=== PATIENT | female | born 1995 | race Caucasian/White ===

== ENCOUNTER 2024-12-25 06:33 | Emergency (ER) | payer MEDICARE, MEDICAID, SELFPAY ==
--- NOTE | ~2024-12-25 | XR_ITS ---
CLINICAL HISTORY: sob 1 view chest x-ray Comparison: None Findings: The lungs are clear. Heart size is normal. No acute fracture. IMPRESSION: 1. No acute findings. This document has been electronically signed by: Lisa De Leon MD on 12/25/2024 07:33:02
--- NOTE | ~2024-12-25 | CT_ITS ---
EXAMINATION: CTA NECK WITH CONTRAST (STROKE) CTA BRAIN WITH CONTRAST (STROKE) CLINICAL INFORMATION: Blurred vision. COMPARISON: None available. TECHNIQUE: CTA of the head and neck was performed in the axial plane from the mediastinum to the skull vertex using 70 mL Omnipaque 350 intravenous contrast. Additional reformatted multiplanar images including maximum intensity projection MIP images are generated on the CT workstation. This CT examination was performed using dose optimization techniques as appropriate, variously including the following: *Automated exposure control *Adjustment of mA and/or kV according to patient size (this includes techniques or standardized protocols for targeted exams where dose is matched to indication/reason for exam; i.e. extremities or head) *Use of iterative reconstruction technique. DLP: 1650 mGy centimeter. FINDINGS: The degree of stenosis determined by criteria similar to NASCET. Brain: No acute intracranial hemorrhage, mass effect, midline shift, hydrocephalus or herniation. There is a semilunar hypodensity involving the peripheral aspect of the right hemicranium likely artifactual. Garner-white matter differentiation is normal. Posterior cranial fossa contents demonstrated a peripheral calcified 1.2 cm cystic structure in the pineal gland. Sellar/suprasellar region demonstrated no gross masses. Tympanic cavities and mastoid cells are aerated. Mucosal thickening, right maxillary sinus. Metallic piercing in the nasal septum, tongue and left ear. Chest CTA: Normal patency diameter of the aortic arch without focal stenosis or intimal flap. Neck CTA: Right CCA: Normal patency. No focal stenosis. No intimal flap. Right ICA: Normal patency. No focal stenosis. No intimal flap. Left CCA: Normal patency. No focal stenosis. No intimal flap. Left ICA: Normal patency. No focal stenosis. No intimal flap. V1/V2 segments: Normal patency. No focal stenosis. No intimal flap. Both demonstrated origin directly from the subclavian artery. Brain CTA: Anterior cerebral circulation: ICAs: Normal patency. No focal stenosis. No abrupt cut off. MCA's: Normal patency. No focal stenosis. No abrupt cut off. ACAs: Left A1 segment: Hypoplastic versus atretic. No focal stenosis or abrupt cut off. Ophthalmic arteries are patent. Anterior communicating artery is patent. Left posterior communicating artery is patent. Posterior cerebral circulation: V3/V4 segments: Normal patency. Codominant. No focal stenosis. No intimal flap. Posterior inferior cerebellar arteries are patent. Basilar artery: Normal patency. No focal stenosis. No intimal flap. Superior cerebellar arteries are patent. chinese teacher: Left P1 segment, hypoplastic versus atretic. No focal stenosis. No abrupt cut off. Ancillary findings: Main cerebral venous sinuses are patent. CT/CT angio head neck IMPRESSION: No main cerebral artery occlusion or embolus. No dissection. No gross aneurysm. 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 Left A1 segment: Hypoplastic versus atretic. 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 This critical test result is communicated to: Yazmin Chambers at 10:24 AM on December 25, 2024. Electronically signed by: Kenneth Mendoza MD 12/25/2024 10:47 AM EDT
[2024-12-25 06:38] VITALS: BP 134/89; PULSE 89; RESP 16; TEMP 36.7; O2SAT 98; BMI 48.5
[2024-12-25 07:18] LABS: MANUAL DIFF FLAG NO
[2024-12-25 07:19] LABS: Basophils Percent Auto 0.7 % (0-2); Eosinophils Absolute Auto 0.2 X10*3/uL (0.0-0.4); Eosinophils Percent Auto 4.4 % (0-4); Hematocrit 34.8 % (37.0-47.0); Hemoglobin 12.2 g/dl (12.0-16.0); Imm Gran Abs Auto 0.01 X10*3/uL (0.00-0.03); Imm Gran Pct Auto 0.2 % (0.0-0.4); Lymphocytes Absolute Auto 1.6 X10*3/uL (1.2-4.9); Mean Corpuscular HGB Conc 35.1 g/dl (31.0-35.0); Mean Corpuscular Hemoglobin 28.8 pg (27.0-33.0); Mean Corpuscular Volume 82.3 fL (80.0-98.0); Mean Platelet Volume 9.9 fL (9.4-12.3); Monocytes Absolute Auto 0.4 X10*3/uL (0.1-1.2); Neutrophils Absolute Auto 2.2 x10*3/uL (2.0-8.3); Neutrophils Percent Auto 49.7 % (45-73); Platelet Count 239 X10*3/uL (160-400); Red Blood Count 4.23 X10*6/uL (4.20-5.50); Red Cell Distribution Width 13.4 % (11.0-16.0); White Blood Count 4.4 X10*3/uL (4.8-10.8)
--- OUTSIDE RECORDS SUMMARY | 2024-12-25 07:25 | XMS_ITS | Clinical Summary ---
Author Organization [facility] [place] [address] Care Team Providers Care [employer] Name Role Phone Unavailable Primary Care Provider Unavailabl e Medications valACYclovir (VALTREX) 500 mg tablet TAKE 1 TABLET BY MOUTH 2 TIMES DAILY FOR 120 DAYS. 60 tablet 3 11/26/2024 Active Surgical History Surgery Date Site/Laterality Comments OTHER SURGICAL HISTORY PROCEDURE: DENIES PREVIOUS SURGERY WISDOM TOOTH EXTRACTION PROCEDURE: HISTORICAL WISDOM TEETH EXTRACTION; COMMENT: all 4 removed under local anaesthesia SECTION PROCEDURE: AR DELIVERY ONLY Medical History Medical History Date Comments Hypercholesteremia DX:Hyperchole steremia; COMMENT: resolved Migraine DX:Migraine; COM MENT: resolved Anxiety and depression DX:Anxiet y and depression Genital herpes DX:Genital herpe s Vaginal discharge 02/01/2019 DX:Vaginal dis charge Pelvic cramping 02/01/2019 DX:Pelvic crampi ng History of pre-eclampsia 02/01/2019 DX:Hist ory of pre-eclampsia; COMMENT: Hx PreE in prior x3 Baseline P/C ratio 0.08 Taking ASA Family History Medical History Relation Name Comments Diabetes Father Diabetes Maternal Grandfather Hyperlipidemia Maternal Grandfather Diabetes Maternal Grandmother Hyperlipidemia Maternal Grandmother Other: skin cancer Maternal Grandmother Ovarian cancer Maternal Grandmother No Known Problems Mother Diabetes Paternal Grandfather Hyperlipidemia Paternal Grandfather Hypertension Paternal Grandfather Stroke Paternal Grandfather Diabetes Paternal Grandmother Breast cancer Neg Hx Cancer of Small Bowel Neg Hx Colon cancer Neg Hx Kidney cancer Neg Hx Pancreatic cancer Neg Hx Uterine cancer Neg Hx Relation Name Status Comments Brother 1 paternal 1/2 Alive x1 half Brother 2 paternal 1/2 x1 half, born p rematurely Father Alive Maternal Grandfather Maternal Grandmother Alive Mother Alive Paternal Grandfather Alive Paternal Grandmother Alive Sister 1 maternal 1/2 Alive x4 half Sister 2 paternal 1/2 Alive Sister 3 paternal 1/2 Alive Sister 4 paternal 1/2 Alive Social History Tobacco Use Types Packs/Day Years Used Date Smoking Tobacco: Former Cigarettes Q uit: 08/01/2012 Alcohol Use Standard Drinks/Week Comments No 0 (1 standard drink = 0.6 oz pur e alcohol) Comments Unknown Sex and Gender Information Value Date Recorded Sex Assigned at Not on file Legal Sex Female 8:31 AM EST Gender Identity Not on file Sexual Orientation Not on file Obstetrics History Last Filed Vital Signs Vital Sign Reading Time Taken Comments Blood Pressure 121/79 01/17/2024 9:49 AM EDT Pulse 99 01/17/2024 9:49 AM EDT Temperature - - Respiratory Rate - - Oxygen Saturation - - Inhaled Oxygen Concentration - - Weight 138 kg (304 lb) 01/17/2024 9:49 AM EDT Height 170.2 cm (5' 7 ) 01/17/2024 9:49 AM EDT Body Mass Index 47.61 01/17/2024 9:49 AM EDT Plan of Treatment Health Maintenance Due Date Last Done Comments Hepatitis B Vaccines (1 of 3 - 19+ 3-dose series) 2014 Cholesterol Screening (Lipid Panel) 08/22/2022 Depression Screening 08/22/2022 HIV Screening 08/22/2022 Hepatitis C Screening 08/22/2022 Social Influencers of Health Screening 08/22/2022 COVID-19 Vaccine (1 - 2023-2 5 season) 2024 Cervical Cancer Screening: P ap Smear 03/03/2025 03/03/2022 Influenza Vaccine (Season Ended) 2025 DTaP,Tdap,and Td Vaccines (2 - Td or Tdap) 06/28/2032 06/28/2022 HIB Vaccines Aged Out No longer eligi ble based on patient's age to complete this topic HPV Vaccines Aged Out No longer eligi ble based on patient's age to complete this topic Hepatitis A Vaccines Aged Out No long er eligible based on patient's age to complete this topic IPV Vaccines Aged Out No longer eligi ble based on patient's age to complete this topic MMR Vaccines Aged Out No longer eligi ble based on patient's age to complete this topic Meningococcal ACWY Vaccine Aged Out N o longer eligible based on patient's age to complete this topic Meningococcal B Vaccine Aged Out No l onger eligible based on patient's age to complete this topic Pneumococcal Vaccine: Pediat rics (0 to 5 Years) and At-Risk Patients (6 to 64 Years) Aged Out No longer eligi ble based on patient's age to complete this topic RSV Immunization Patients Un benigno 20 months Aged Out No longer eligible b ased on patient's age to complete this topic Varicella Vaccines Aged Out No longer eligible based on patient's age to complete this topic Procedures Procedure Name Priority Date/Time Associated Diagnosis Comments PAP SMEAR Routine 03/03/2022 from Last 3 Months or Most Recently Relevant to Health Maintenance Results * Pap smear (03/03/2022) 03/03/2022 Narrative HISTORICAL TESTING LAB RESULTING AGENCY - 03/12/2022 8:15 AM EDT [id number] THINPREP PAP, IMAGED: NEGATIVE FOR SQUAMOUS INTRAEPITHELIAL LESION AND MALIGNANCY . RADHA CREWS , ROBERT(ASCP) (CASE ELECTRONICALLY SIGNED 03 11 2022) ADEQUACY: SATISFACTORY ENDOCERVICAL/TRANSFORMATION ZONE COMPONENT PRESENT. SOURCE: THINPREP PAP HPV IF ASCUS, CERVICAL, IMAGED CLINICAL INFORMATION: HPV IF DIAGNOSIS OF ASCUS. , PAP HX NEGATIVE, [Z12.4] us Robert Matos DO LAB CYTOLOGY ORDERABLES Final Result HISTORICAL TESTING LAB RESULTING AGENCY from Last 3 Months or Most Recently Relevant to Health Maintenance
[2024-12-25 07:35] LABS: Alanine Aminotransferase 27 U/L (0-31); Alkaline Phosphatase 56 U/L (39-117); Anion Gap 11 (12-20); Aspartate Amino Transferase 19 U/L (5-31); Bilirubin Total 0.3 mg/dL (0.0-1.0); Blood Urea Nitrogen 13 mg/dL (9-16); Calcium 9.1 mg/dL (8.4-10.2); Carbon Dioxide 25 mmol/L (22-29); Chloride 109 mmol/L (96-108); Estimated Glomerular Filt Rate > 60; Glucose Random 134 mg/dL (60-115); Potassium 4.5 mmol/L (3.3-5.1); Sodium 140 mmol/L (135-145); Total Protein 6.4 g/dL (6.5-8.0)
[2024-12-25 08:03] LABS: Influenza A PCR NEGATIVE (Negative); Influenza B PCR NEGATIVE (Negative); Resp Syncy Virus RNA Qual PCR NEGATIVE (Negative); SARS COV2 PCR INHOUSE NEGATIVE (Negative)
--- NOTE | 2024-12-25 08:05 | ED_ITS ---
HPI - General Adult General Chief complaint: General Medical Stated complaint: blurry vision Time Seen by Provider: 12/25/24 08:01 Source: patient Mode of arrival: ambulatory Limitations: no limitations History of Present Illness ED Provider: Yazmin Chambers PA-C HPI narrative: Patient is a 23 year old assigned female at with no reported medical history presenting to the emergency department today with blurry vision and feeling as though her lungs are on fire. Patient states that she began to have a headache behind her eyes that has since resolved and she continues to have blurry vision. Patient states that she woke up with it. Patient states that she also feels as though her lungs are on fire when she takes deep breaths. Patient denies any dizziness, lightheadedness, abdominal pain, nausea, vomiting, fever, chills, double vision, loss of vision, chest pain, difficulty breathing, shortness of breath, back pain, night sweats, pain with urination, increased urinary frequency, increased urinary urgency, blood in her urine or stool, syncope or a near syncopal episode, recent trauma or falls, bowel incontinence, bladder incontinence, or any other complaints at this time. Relieving factors: none Exacerbating factors: none Treatments prior to arrival: none Related Data Allergies Allergy/AdvReac Type Severity Reaction Status Date / Time No Known Allergies Allergy Verified 12/25/24 06:42 Review of Systems 2 Constitutional: Constitutional: Reports no additional constitutional complaints, Denies chills, Denies fever(s), Reports headache(s) (now resolved) and Denies night sweats Eyes: Eyes: Reports no additional eye complaints, Reports blurry vision (since this morning), Denies change in vision, Denies diplopia, Denies eye discharge, Denies loss of vision and Denies eye pain ENT: Denies dizziness and Reports headache(s) (now resolved) Cardiovascular: Cardiovascular: Reports no additional cardiovascular complaints, Denies chest pain, Denies lightheadedness, Denies Loss of Consciousness and Denies dyspnea Respiratory: Respiratory: Reports no additional respiratory complaints and Denies dyspnea Comments: lungs feel on fire Gastrointestinal: Gastrointestinal: Reports no additional gastrointestinal complaints, Denies abdominal pain, Denies melena, Denies hematochezia, Denies change in bowel habits and Denies change in stool character Genitourinary: Genitourinary: Denies hematuria, Denies urinary frequency, Denies dysuria, Denies urinary incontinence, Denies urinary hesitancy and Denies urinary urgency Musculoskeletal: Musculoskeletal: Reports no additional musculoskeletal complaints, Denies numbness and Denies tingling Neurologic: Denies dizziness, Reports headache(s) (now resolved), Denies loss of vision, Denies numbness and Denies tingling Psychiatric: Psychiatric: Reports no additional psychiatric complaints Endocrine: Endocrine: Reports no additional endocrine complaints Hematologic/Lymphatic: Hematologic/Lymphatic: Reports no additional hematologic/lymphatic complaints Allergic/Immunologic: Allergic/Immunologic: Reports no additional allergic/immunologic complaints [facility] Past Medical History Attestation statement: The following information was validated with the patient. Source: old records reviewed and nursing notes reviewed Social History Social History Smoked in Last 30 Days: No Use of substances other than those prescribed or required for medical reasons: No Advance Directives: No Advance Directives Information Provided: No Do you have a plan to hurt others: No Plan Patient : No Physical Exam ED Vital Signs: Vital Signs - 24 hr 12/25/24 06:38 Temperature 98.0 F Pulse Rate 89 Respiratory Rate 16 Blood Pressure 134/89 Pulse Oximetry 98 Oxygen Delivery Method Room Air BMI result Body Mass Index 48.5 Const General: cooperative, no acute distress, alert and awake Nutritional Appearance: well nourished Orientation/consciousness: patient oriented x3 Limitations: no limitations HENMT Head: Yes normal to inspection and Yes atraumatic Ears: hearing grossly normal bilaterally and external ears normal General nose exam: Normal external nose present, no nasal discharge noted and no epistaxis Face and sinus: Yes normal facial exam, No abrasion and No laceration Mouth: Normal oral and palatal mucosa present, no drooling and no muffled voice Eyes General: appearance normal, both eyes and all related structures Periorbital: periorbital findings normal Eyelids: Yes eyelids normal Conjunctivae: conjunctivae normal Pupils: Equal, round and reactive pupils present EOM: EOMs intact bilaterally Neck Neck: Yes normal visual inspection, Yes full ROM and Yes no lymphadenopathy Chest Chest palpation & inspection: normal inspection of the chest Resp Effort & Inspection: normal respiratory effort and able to speak in complete sentences GI Inspection: Yes normal to inspection Neuro General: patient oriented x3, moves all extremities and CN's II-XI intact bilaterally Cranial nerves: Yes Equal, round and reactive pupils present Cognition (Neuro): normal cognition Extrem General: Yes normal to inspection, Yes full ROM and Yes capillary refill normal Psych Appearance: grossly normal Mental Status: mental status grossly normal Affect: normal affect Attitude: cooperative Thought process: Normal thought process present Thought content: Normal thought content present Insight: Good insight present (Psych) NIH Stroke Scale Internal: Initial- Upon Arrival Level of Consciousness: Alert Level of Consciousness Questions: Answers both questions correctly Level of Consciousness Commands: Performs both tasks correctly Best Gaze: Normal Visual: No visual loss Facial Palsy: Normal Motor Arm (Right): No drift Motor Arm (Left): No drift Motor Leg (Right): No drift Motor Leg (Left): No drift Limb Ataxia: Absent Sensory: Normal Best Language: No aphasia Dysarthia: Normal Extinction and Inattention: No abnormality Score: 0 Medications Administered Discontinued Medications Generic Name Dose Route Start Last Admin Trade Name Freq PRN Reason Stop Dose Admin Iohexol 70 ml 12/25/24 09:27 12/25/24 09:27 Iohexol 350 Mg/Ml 100 Ml Infus..Btl IV 12/25/24 09:28 70 ml ONCE ONE Administration Medical Decision Making Medical Decision Making [facility] Narrative: Patient is a 23 year old assigned female at with no reported medical history presenting to the emergency department today with blurry vision and feeling as though her lungs are on fire. Patient's physical exam was unremarkable. Patient's blood work was unremarkable. Patient's chest x-ray and CTA head/neck showed no acute process. I explained my physical exam findings as well as all test results to the patient. I answered all questions asked by the patient. Given the patient's current clinical presentation with a headache that proceeded the vision change and negative work up / imaging, her clinical presentation is most consistent with a complex migraine. However, I explained to the patient that vision changes like this could also be an early sign of MS and she must follow up with a neurologist. I stressed the importance of the patient taking her medication as directed (either prescribed or as the over the counter packaging recommends). I stressed the importance of the patient following up with her primary care provider and a neurologist. I stressed the importance of the patient returning to the emergency department immediately if her symptoms were to worsen or if she were to develop any dizziness, shortness of breath, difficulty breathing, chest pain, blurry vision, loss of vision, nausea, vomiting, abdominal pain, fever, chills, back pain, or any other complaints. Patient verbalized agreement and understanding with this treatment plan and discharge. Differential Diagnosis Differential Diagnoses: The differential diagnosis associated with the presentation includes Blurry vision MS Complex migraine CVA Admission/Observation Consideration of admission/observation: Escalation of care including admission/observation considered Patient would have been admitted to the hospital had her work up had any findings where hospital admission was appropriate and her clinical presentation warranted hospital admission. Lab Data [facility] Lab Attestation statement: I reviewed the patient's lab results. My interpretation of these results are in the [facility] Rationale portion of this note. 12/25/24 07:14 12/25/24 07:14 Labs: Lab Results 12/25/24 12/25/24 Range/Units 07:14 08:31 WBC 4.4 L (4.8-10.8) X10*3/uL RBC 4.23 (4.20-5.50) X10*6/uL Hgb 12.2 (12.0-16.0) g/dl Hct 34.8 L (37.0-47.0) % MCV 82.3 (80.0-98.0) fL MCH 28.8 (27.0-33.0) pg MCHC 35.1 H (31.0-35.0) g/dl RDW 13.4 (11.0-16.0) % Plt Count 239 (160-400) X10*3/uL MPV 9.9 (9.4-12.3) fL Immature Gran % (Auto) 0.2 (0.0-0.4) % Neut % (Auto) 49.7 (45-73) % Lymph % (Auto) 37.0 (20-40) % [place] % (Auto) 8.0 (2-11) % Eos % (Auto) 4.4 H (0-4) % Baso % (Auto) 0.7 (0-2) % Lymph # (Auto) 1.6 (1.2-4.9) X10*3/uL [place] # (Auto) 0.4 (0.1-1.2) X10*3/uL Eos # (Auto) 0.2 (0.0-0.4) X10*3/uL Baso # (Auto) 0.0 (0.0-0.2) X10*3/uL Abs Immat Gran (auto) 0.01 (0.00-0.03) X10*3/uL Absolute Neuts (auto) 2.2 (2.0-8.3) x10*3/uL Absolute Nucleated RBC 0.000 (0.0-0.012) X10*3/uL Nucleated RBC % (auto) 0.0 (0.0-0.2) /100WBC D-Dimer High Sensitivty < 150 NG/ML Sodium 140 (135-145) mmol/L Potassium 4.5 (3.3-5.1) mmol/L Chloride 109 H (96-108) mmol/L Carbon Dioxide 25 (22-29) mmol/L Anion Gap 11 L (12-20) BUN 13 (9-16) mg/dL Creatinine 0.74 (0.5-1.4) mg/dL Estim Creat Clear Calc 165.0 Estimated GFR > 60 Random Glucose 134 H (60-115) mg/dL Calcium 9.1 (8.4-10.2) mg/dL Magnesium 1.6 (1.6-2.6) mg/dL Total Bilirubin 0.3 (0.0-1.0) mg/dL AST 19 (5-31) U/L ALT 27 (0-31) U/L Alkaline Phosphatase 56 (39-117) U/L Total Protein 6.4 L (6.5-8.0) g/dL Albumin 4.0 (3.5-5.0) g/dL TSH 1.33 (0.32-4.0) uIU/mL Free T4 0.82 (0.71-1.85) ng/dL Beta HCG, Quant < 2 mIU/mL Influenza Type A (PCR) NEGATIVE (Negative) Influenza Type B (PCR) NEGATIVE (Negative) RSV RNA Qual (PCR) NEGATIVE (Negative) SARS-CoV-2 RNA (RT-PCR) NEGATIVE (Negative) Independent Interpretation I performed an independent interpretation of an: Plain X-Ray and CT Scan Interpretation: My interpretation is in agreement with the radiologist's impression of these imaging studies. L CLINICAL HISTORY: sob 1 view chest x-ray Comparison: None Findings: The lungs are clear. Heart size is normal. No acute fracture. IMPRESSION: 1. No acute findings. This document has been electronically signed by: Lisa De Leon MD on 12/25/2024 07:33:02 Dictated By: Lisa De Leon MD Signed By: Electronically signed by Lisa De Leon MD 12/25/24 0733 Report Number: [id number]: Total DLP = 1650.00 mGy-cm EXAMINATION: CTA NECK WITH CONTRAST (STROKE) CTA BRAIN WITH CONTRAST (STROKE) CLINICAL INFORMATION: Blurred vision. COMPARISON: None available. TECHNIQUE: CTA of the head and neck was performed in the axial plane from the mediastinum to the skull vertex using 70 mL Omnipaque 350 intravenous contrast. Additional reformatted multiplanar images including maximum intensity projection MIP images are generated on the CT workstation. This CT examination was performed using dose optimization techniques as appropriate, variously including the following: *Automated exposure control *Adjustment of mA and/or kV according to patient size (this includes techniques or standardized protocols for targeted exams where dose is matched to indication/reason for exam; i.e. extremities or head) *Use of iterative reconstruction technique. DLP: 1650 mGy centimeter. FINDINGS: The degree of stenosis determined by criteria similar to NASCET. Brain: No acute intracranial hemorrhage, mass effect, midline shift, hydrocephalus or herniation. There is a semilunar hypodensity involving the peripheral aspect of the right hemicranium likely artifactual. Garner-white matter differentiation is normal. Posterior cranial fossa contents demonstrated a peripheral calcified 1.2 cm cystic structure in the pineal gland. Sellar/suprasellar region demonstrated no gross masses. Tympanic cavities and mastoid cells are aerated. Mucosal thickening, right maxillary sinus. Metallic piercing in the nasal septum, tongue and left ear. Chest CTA: Normal patency diameter of the aortic arch without focal stenosis or intimal flap. Neck CTA: Right CCA: Normal patency. No focal stenosis. No intimal flap. Right ICA: Normal patency. No focal stenosis. No intimal flap. Left CCA: Normal patency. No focal stenosis. No intimal flap. Left ICA: Normal patency. No focal stenosis. No intimal flap. V1/V2 segments: Normal patency. No focal stenosis. No intimal flap. Both demonstrated origin directly from the subclavian artery. Brain CTA: Anterior cerebral circulation: ICAs: Normal patency. No focal stenosis. No abrupt cut off. MCA's: Normal patency. No focal stenosis. No abrupt cut off. ACAs: Left A1 segment: Hypoplastic versus atretic. No focal stenosis or abrupt cut off. Ophthalmic arteries are patent. Anterior communicating artery is patent. Left posterior communicating artery is patent. Posterior cerebral circulation: V3/V4 segments: Normal patency. Codominant. No focal stenosis. No intimal flap. Posterior inferior cerebellar arteries are patent. Basilar artery: Normal patency. No focal stenosis. No intimal flap. Superior cerebellar arteries are patent. last code striper: Left P1 segment, hypoplastic versus atretic. No focal stenosis. No abrupt cut off. Ancillary findings: Main cerebral venous sinuses are patent. CT/CT angio head neck IMPRESSION: No main cerebral artery occlusion or embolus. No dissection. No gross aneurysm. 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 Left A1 segment: Hypoplastic versus atretic. 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 This critical test result is communicated to: Yazmin Chambers at 10:24 AM on December 25, 2024. Electronically signed by: Kenneth Mendoza MD 12/25/2024 10:47 AM EDT Dictated By: Kenneth Stanley MD Signed By: Electronically signed by Kenneth James MD 12/25/24 1047 Radiology Impression Discussion of test interpretation with radiology: I have reviewed the radiologist's reading. Critical Care Time Critical Care Time Critical Care Time: Yes Total Critical Care Time: 33 Attestation: I spent 33 minutes of Critical Care Time with this patient. This does not include time spent on separately reported billable procedures. Discharge Plan Discharge Clinical Impression: Migraine Patient Disposition: Home, Self-Care Instructions: Migraine Headache (ED) Additional Instructions: Your work up today was reassuring that there is no emergent cause for your symptoms. However, you need to follow up with a neurologist. Follow up with your primary care provider. Return to the emergency department immediately if your symptoms worsen or if you develop any numbness, tingling, dizziness, shortness of breath, difficulty breathing, chest pain, blurry vision, loss of vision, nausea, vomiting, abdominal pain, fever, chills, back pain, or any other complaints. Please see the information below about our Patient Portal. If you are not yet enrolled in the [facility] Patient Portal, you will receive an enrollment email invitation following your visit to any [facility] setting. You may also self-enroll in the Patient Portal by visiting our website: [email or web address] The following information is required to access the Patient Portal: - Your [facility] Medical Record Number - Your personal home email address (must match what is in your electronic medical record, Registration staff can assist with this) - Name - Date of Capabilities of the Patient Portal: - Message some providers - View upcoming appointments - Access your health summary, medical history, and visit history - View current conditions and allergies - View procedure and lab results - View your medications, including guidelines, side effects, and precautions - Complete pre-appointment questionnaires requested by your provider - Ready summary reports of your office visits and procedures To access the Patient Portal Mobile Nick, follow these directions: - Search [employer] in the Nick Store or Opencare Store - Download the Nick - Search for [facility] - Enter your login/password Referrals: [facility] [Provider Group] (Call to establish and follow up with a primary care provider. If you already have a primary care provider, please follow up with them. ) [facility] [Provider Group] (Call to establish and follow up with a primary care provider. If you already have a primary care provider, please follow up with them. ) [facility] [place] [Provider Group] (Call to establish and follow up with a primary care provider. If you already have a primary care provider, please follow up with them. ) [facility], [facility] [Provider Group] (Call to establish and follow up with a primary care provider. If you already have a primary care provider, please follow up with them. ) [facility], [place] [Provider Group] (Call to establish and follow up with a primary care provider. If you already have a primary care provider, please follow up with them. ) [facility] Neuro[facility] [Provider Group] (Call to establish and follow up with a neurologist. ) [facility] [Provider Group] (Call to establish and follow up with a neurologist. ) Print Language: Thai
--- NOTE | 2024-12-25 08:35 | PC.NURSE ---
20gIV placed in the left upper arm - labs obtained/sent to lab. lights dimmed to promote comfort. call west placed within reach.
[2024-12-25 08:36] LABS: Magnesium 1.6 mg/dL (1.6-2.6)
[2024-12-25 08:46] LABS: D Dimer High Sensitivity < 150 NG/ML
[2024-12-25 08:54] LABS: Free T4 (Free Thyroxine) 0.82 ng/dL (0.71-1.85); HCG Quantitative < 2 mIU/mL; Thyroid Stimulating Hormone 1.33 uIU/mL (0.32-4.0)
[2024-12-25] MEDS: iohexoL 350 MG/ML 100 ML INFUS..BTL 70 ML IV (09:27)
[2024-12-25 11:03] VITALS: BP 123/72; PULSE 85; RESP 16; TEMP 36.7; O2SAT 100
== END 2024-12-25 11:04 | disposition home or self-care (01) ==
PROVIDERS: Physician Assistant Medical; Emergency Provider Emergency Medicine
DX: G43.909 Migraine, unspecified, not intractable, without status migrainosus (principal); Z03.818 Encounter for observation for suspected exposure to other biological agents ruled out
CPT/HCPCS: 0241U; 36415; 70496; 70498; 71045; 80053; 83735; 84439; 84443; 84702; 85025; 85379; 99284; Q9967

== ENCOUNTER → 2024-12-25 06:42 | Outpatient (BNV) | payer MEDICARE, MEDICAID, SELFPAY | PROVIDERS: Visit Provider Radiology Diagnostic Radiology | DX: H53.8 Other visual disturbances (principal); R06.02 Shortness of breath | CPT/HCPCS: 70496; 70498 ==